=== PATIENT | female | born 1990 | race Caucasian/White ===

== ENCOUNTER 2018-08-10 13:49 | Emergency (ER) | payer OTHER ==
[~2018-08-10] VITALS: Ht 160 cm; Wt 89.8 kg
== END 2018-08-10 22:14 | disposition home or self-care (01) ==
LOC: ER 13:49
DX: M54.2 Cervicalgia (principal)

== ENCOUNTER 2018-08-31 08:54 | Emergency (ER) | payer OTHER ==
[~2018-08-31] VITALS: Ht 160 cm; Wt 90.7 kg
[2018-08-31] MEDS ORDERED: CELEBREX200MG (09:05)
[2018-08-31] MEDS ORDERED: KETO10TA2 PO (11:55)
[2018-08-31] MEDS ORDERED: NORFLEX100MG PO (11:55)
[2018-08-31] MEDS ORDERED: MEDROLPACK PO (11:55)
== END 2018-08-31 12:16 | disposition home or self-care (01) ==
LOC: ER 08:54
DX: M54.2 Cervicalgia (principal); M54.89 Other dorsalgia

== ENCOUNTER 2022-06-07 22:58 | Emergency (ER) | payer OTHER ==
[~2022-06-07] VITALS: Ht 160 cm; Wt 88.9 kg
[~2022-06-07 22:58] MED LIST: CELEBREX200MG; KETO10TA2 PO; MEDROLPACK PO; NORFLEX100MG PO
[2022-06-07] MEDS ORDERED: VERZENIO50 MG (23:46)
[2022-06-08] MEDS ORDERED: MEDROLPACK PO (01:50)
[2022-06-08] MEDS ORDERED: NORFLEX100MG PO (01:50)
== END 2022-06-08 02:13 | disposition home or self-care (01) ==
LOC: ER 22:58
DX: M54.89 Other dorsalgia (principal); Z88.8 Allergy status to other drugs, medicaments and biological substances; Z85.3 Personal history of malignant neoplasm of breast

== ENCOUNTER 2024-11-26 09:59 | Emergency (ER) | payer OTHER ==
[~2024-11-26] VITALS: Ht 160 cm; Wt 90.7 kg
[~2024-11-26 09:59] MED LIST changes: +VERZENIO50 MG
[2024-11-26] MEDS ORDERED: ANASTROZOLE1 MG (10:15)
[2024-11-26] MEDS ORDERED: 0.9 % SODIUM CHLORIDE 1,000 ML IV SCH (10:30)
[2024-11-26 11:11] LABS: PH,URINE 7.5 (5.0-8.0); URINE APPEARANCE Clear; URINE BILIRRUBIN Negative (NEGATIVE); URINE BLOOD Negative; URINE COLOR Yellow; URINE GLUCOSE Negative (NEGATIVE); URINE KETONE Negative (NEGATIVE); URINE LEUKOCYTE Trace; URINE NITRATE Negative; URINE PROTEIN Negative (NEGATIVE); URINE UROBILINOGEN 0.2 E.U./dl
[2024-11-26 11:15] LABS: URINE BACTERIA 1296.1 uL (0.0-1933); URINE EPITHELIAL CELLS 20.2 uL (0.0-38.8); URINE RBC 3.2 uL (0.0-20.8); URINE WBC 58.1 uL (0.0-23.2)
[2024-11-26 11:18] LABS: HEMATOCRIT 36.2 % (36.0-45.00); HEMOGLOBIN 12.6 g/dL (12.0-15.00); MEAN CELL VOLUME 96.9 fL (80.00-100.00); MEAN CORPUSCULAR HEMOGLOBIN 33.6 pg (27.00-32.0); MEAN CORPUSCULAR HGB CONC 34.7 g/dl (32.0-36.0); RED BLOOD COUNT 3.74 M/uL (4.00-6.00); RED CELL DISTRIBUTION WIDTH 14.3 % (11.5-14.5)
[2024-11-26 11:25] LABS: PLATELET COUNT 123 K/uL (150-450)
[2024-11-26 12:35] LABS: INR 1.04; PARTIAL THROMBOPLASTIN TIME 26.2 SECONDS (22.0-34.0); PROTHROMBIN TIME 11.3 SECONDS (9.0-11.5)
[2024-11-26 13:34] LABS: CALCIUM 10.3 mg/dL (8.5-10.1); CREATININE SERUM 0.78 mg/dL (0.55-1.02); GFR 84.54; POTASSIUM 4.28 mEq/L (3.5-5.1)
[2024-11-26] MEDS ORDERED: LACTULOSE 10 G/15 ML ML PO ONE (17:45)
[2024-11-26] MEDS ORDERED: MAGNESIUM HYDROXIDE 400 MG/5 ML ML PO ONE (17:45)
== END 2024-11-26 17:36 | disposition home or self-care (01) ==
LOC: ER 10:01
PROVIDERS: Emergency Medicine
DX: K59.00 Constipation, unspecified (principal); R10.9 Unspecified abdominal pain; R10.2 Pelvic and perineal pain; Z88.1 Allergy status to other antibiotic agents
CPT/HCPCS: 36415; 74177; Q9965